=== PATIENT | male | born 1965 | race Caucasian/White ===

== ENCOUNTER 2021-12-19 20:39 | Emergency (ER) | payer OTHER ==
[2021-12-19 21:44] LABS: HEMOGLOBIN 13.1 gm/dl (14.0-17.5); RED BLOOD COUNT 4.6 M/UL (4.20-5.50)
[2021-12-19 21:50] LABS: BUN/CREATININE RATIO 16 (0-10)
== END 2021-12-20 | disposition home or self-care (01) ==
LOC: ER1 20:39
PROVIDERS: Nurse Practitioner
DX: R07.81 Pleurodynia (principal); R47.89 Other speech disturbances; Z90.49 Acquired absence of other specified parts of digestive tract; Z88.8 Allergy status to other drugs, medicaments and biological substances
CPT/HCPCS: 70450; 71045; 80053; 82550; 82553; 84484; 85025; 93005; 99285; G0480